=== PATIENT | male | born 1995 | race American Indian/Alaskan Native ===

== ENCOUNTER 2022-02-28 17:26 | Emergency (ER) | payer SELFPAY ==
[2022-02-28] MEDS ORDERED: KETOROLAC 30 MG/1 ML INJ IV ONE (17:48)
[2022-02-28] MEDS ORDERED: ONDANSETRON 4 MG/2 ML INJ IV ONE (17:48)
[2022-02-28] MEDS ORDERED: HYDROmorphone 1 MG/1 ML INJ IV ONE (17:48)
--- NOTE | 2022-02-28 17:56 | Emergency Department Report ---
HPI - General Chief Complaint: Extremity Injury, Upper Time Seen by Provider: 02/28/22 17:45 - HPI HPI: Room 18 The patient is a 27-year-old male present with a chief complaint of left shoulder dislocation. The patient states approximate 20 minutes prior to arrival while replacing the nozzle of a gas pump he dislocated his left shoulder. Patient states he has dislocated his shoulder in the past. Patient currently gives his pain a score of 10/10 ED Past Medical Hx - Past Medical History Hx Asthma: Yes Additional medical history: shoulder dislocation. 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" - Family History Family history: no significant - Social History Smoking Status: Never Smoker Substance Use Type: Alcohol (Occasional), Marijuana - Medications Home Medications: Home Medications Medication Instructions Recorded Confirmed Last Taken Type HYDROcodone/APAP 5-325 [[place] 1 - 2 each PO Q6HR PRN #10 tablet 02/28/22 Unknown Rx 5/325] Ibuprofen [Motrin 800 MG tab] 800 mg PO Q8HR PRN #20 tablet 02/28/22 Unknown Rx ED Review of Systems ROS: Stated complaint: DISLOCATED LT ARM Other details as noted in HPI Constitutional: no symptoms reported Eyes: denies: eye pain ENT: denies: throat pain Respiratory: no symptoms reported Cardiovascular: denies: chest pain Endocrine: no symptoms reported Gastrointestinal: denies: abdominal pain Musculoskeletal: arthralgia, myalgia Skin: denies: lesions Neurological: denies: headache Physical Exam - Physical Exam Vital Signs: Vital Signs 02/28/22 17:28 Temperature 97 F L Pulse Rate 73 Respiratory 26 H Rate Blood Pressure 174/109 O2 Sat by Pulse 97 Oximetry Physical Exam: GENERAL: The patient is well-developed well-nourished male lying on stretcher appear to be in moderate discomfort. [] HEENT: Normocephalic. Atraumatic. Extraocular motions are intact. Patient has moist mucous membranes. NECK: Supple. Trachea midline CHEST/LUNGS: Clear to auscultation. There is no respiratory distress noted. HEART/CARDIOVASCULAR: Regular. There is no tachycardia. 2+ left radial pulse ABDOMEN: Abdomen is soft, nontender. Patient has normal bowel sounds. There is no abdominal distention. SKIN: There is no rash. There is no edema. There is no diaphoresis. NEURO: The patient is awake, alert, and oriented. The patient is cooperative. The patient has no focal neurologic deficits. The patient has normal speech. GCS 15 MUSCULOSKELETAL: There is deformity of the left shoulder with limited range of motion secondary to pain ED Course Vital Signs 02/28/22 17:28 Temperature 97 F L Pulse Rate 73 Respiratory 26 H Rate Blood Pressure 174/109 O2 Sat by Pulse 97 Oximetry ED Medical Decision Making - Radiology Data Radiology results: report reviewed (Shoulder x-ray #1), image reviewed (Shoulder x-ray #1, shoulder x-ray #2) interpreted by me: Shoulder x-ray #1-anterior dislocation, no fracture Shoulder x-ray #2-anatomic. No dislocation no fracture seen. [facility] [address] [place] [address] XRay Report Signed Patient: KASH DUFF III MR#: [id number] : 1995 Acct:[id number] Age/Sex: 27 / M ADM Date: 02/28/22 Loc: ED Attending Dr: Ordering Physician: KERI BROCK MD Date of Service: 02/28/22 Procedure(s): XR shoulder 2+V LT Accession Number(s): [id number] cc: KERI BROCK MD Fluoro Time In Minutes: LEFT SHOULDER, 2 VIEW INDICATION / CLINICAL INFORMATION: Suspected dislocation. COMPARISON: None available. FINDINGS: There is an anterior dislocation of the left glenohumeral joint. The humeral head is located inferior to the glenoid. No obvious fracture identified on these views. IMPRESSION: Anterior dislocation of the left glenohumeral joint. Signer Name: Maria Luz De Los Santos MD Signed: 02/28/2022 6:19 PM Workstation Name: [id number] Transcribed By: Dictated By: Maria Luz De Los Santos MD Electronically Authenticated By: Maria Luz De Los Santos MD Signed Date/Time: 02/28/221818 - Differential Diagnosis Shoulder dislocation Critical care attestation.: If time is entered above; I have spent that time in minutes in the direct care of this critically ill patient, excluding procedure time. ED Disposition Clinical Impression: Anterior dislocation of left shoulder Disposition: HOME / SELF CARE / HOMELESS Is pt being admited?: No Does the pt Need Aspirin: No Condition: Stable Instructions: Recurrent Shoulder Laxity and Instability, Shoulder Dislocation, [id number]-[id number] Additional Instructions: Return to the emergency department should you develop worsening symptoms, inability to tolerate food or liquids, high fever or any other concerns Prescriptions: Ibuprofen [Motrin 800 MG tab] 800 mg PO Q8HR PRN #20 tablet PRN Reason: Pain, Moderate (4-6) HYDROcodone/APAP 5-325 [[place] 5/325] 1 - 2 each PO Q6HR PRN #10 tablet PRN Reason: Pain Referrals: MIGUE CARTWRIGHT MD [Staff Physician] - 3-5 Days (Dr. Cartwright is an orthopedic surgeon. Please follow-up with him for further evaluation) Time of Disposition: 19:07
[2022-02-28] MEDS ORDERED: ETOMIDATE 20 MG/10 ML INJ IV ONE ×2 (18:18)
--- NOTE | 2022-02-28 18:24 | XRay Report ---
LEFT SHOULDER, 2 VIEW INDICATION / CLINICAL INFORMATION: Suspected dislocation. COMPARISON: None available. FINDINGS: There is an anterior dislocation of the left glenohumeral joint. The humeral head is located inferior to the glenoid. No obvious fracture identified on these views. IMPRESSION: Anterior dislocation of the left glenohumeral joint. Signer Name: Maria Luz De Los Santos MD Signed: 02/28/2022 6:19 PM Workstation Name: [id number]
[2022-02-28] MEDS ORDERED: METOCLOPRAMIDE 10 MG/2 ML INJ IV ONE (18:46)
--- NOTE | 2022-02-28 19:09 | XRay Report ---
LEFT SHOULDER, SINGLE VIEW INDICATION / CLINICAL INFORMATION: Status post reduction attempt. COMPARISON: Left shoulder radiographs obtained earlier today demonstrating anterior dislocation. FINDINGS: Postreduction single view of the left shoulder shows successful relocation of the left glenohumeral j oint. There is no residual subluxation/dislocation. No fracture identified on this single image. AC j oint is normally aligned. IMPRESSION: Successful reduction of previously noted left glenohumeral dislocation. Signer Name: Maria Luz De Los Santos MD Signed: 02/28/2022 7:05 PM Workstation Name: [id number]
[2022-02-28 19:24] VITALS: BP 123/71
== END 2022-03-01 03:38 | disposition home or self-care (01) ==
LOC: ED 17:26
DX: S43.005A Unspecified dislocation of left shoulder joint, initial encounter (principal); J45.909 Unspecified asthma, uncomplicated; X58.XXXA Exposure to other specified factors, initial encounter; Y93.89 Activity, other specified; Y92.89 Other specified places as the place of occurrence of the external cause; Y99.8 Other external cause status
CPT/HCPCS: 23650; 73020; 73030; 96374; 96375; 99283; J1170; J1885; J2405; J3490